=== PATIENT | female | born 1945 | race Caucasian/White ===

== ENCOUNTER 2016-09-14 07:06 | Outpatient (CLI) | payer MEDICARE, BC ==
[2016-09-14 08:07] LABS: Cardiac Risk 2.6 (Less than 4.5)
== END 2016-09-14 07:07 | disposition home or self-care (01) ==
LOC: MADLAB 07:06
PROVIDERS: ATTEND Family Medicine
DX: Z00.00 Encounter for general adult medical examination without abnormal findings (principal); Z12.11 Encounter for screening for malignant neoplasm of colon; Z13.6 Encounter for screening for cardiovascular disorders
CPT/HCPCS: 36415; 80061

== ENCOUNTER 2016-09-18 12:26 | Outpatient (CLI) | payer MEDICARE, BC | END 2016-09-18 12:27 | disposition home or self-care (01) | LOC: MADLAB 12:26 | DX: Z00.00 Encounter for general adult medical examination without abnormal findings (principal); Z13.6 Encounter for screening for cardiovascular disorders; Z12.11 Encounter for screening for malignant neoplasm of colon | CPT/HCPCS: 36415; 82274 ==

== ENCOUNTER 2016-09-22 07:28 | Outpatient (CLI) | payer MEDICARE, BC ==
[2016-09-22 08:22] LABS: #Basophils 0.1 thou/uL (0.0-0.2); #Eosinphils 0.1 thou/uL (0.0-0.7); #Lymphocytes 2.8 thou/uL (1.20-3.40); #Monocytes 0.5 thou/uL (0.11-0.59); #Neutrophils 2.2 thou/uL (1.40-6.50); %Basophils 2.5 % (0.0-1.0); %Eosinophils 2.4 % (0.0-10.0); %Lymphocytes 48.3 % (21.0-51.0); %Monocytes 8.4 % (0.0-10.0); %Neutrophils 38.4 % (42.0-75.0); Hemoglobin 12.6 g/dL (12.0-16.0); Mean Corpuscular HGB CONC 33.3 g/dL (32.0-36.0); Mean Corpuscular Volume 96.3 fl (81.0-99.0); Mean Platelet Volume 9.7 fL (7.4-10.4); Platelet Count 190 thou/uL (130-400); RBC Distribution Width 13.5 % (11.5-14.5); Red Blood Cell (RBC) Count 3.93 mill/uL (4.20-5.40); White Blood Cell (WBC) Count 5.7 thou/uL (4.8-10.8)
[2016-09-22 08:31] LABS: ALT (SGPT) 19 U/L (0-55); AST (SGOT) 21 U/L (5-34); Albumin 3.9 g/dL (3.4-4.8); Alkaline Phosphatase 47 U/L (40-150); Anion Gap 13 mmol/L (10-20); BUN (Urea Nitrogen) 10 mg/dL (9.8-20.1); Bilirubin, Total 0.7 mg/dL (0.2-1.2); CRP (Inflammatory) Less than 0.50 mg/dL (= or < 0.5); Calc. Creatinine Clearance 0 mL/min (70-130); Calcium 9.2 mg/dL (7.8-10.44); Carbon Dioxide 27 mmol/L (23-31); Chloride 106 mmol/L (98-107); Estimated GFR-MDRD 85; Globulin 2.3 g/dL (2.4-3.5); Glucose 78 mg/dL (83-110); Potassium 3.7 mmol/L (3.5-5.1); Protein, Total 6.2 g/dL (5.8-8.1); Sodium 142 mmol/L (136-145)
== END 2016-09-22 07:29 | disposition home or self-care (01) ==
LOC: MADLAB 07:28
PROVIDERS: ATTEND Internal Medicine Rheumatology
DX: M05.79 Rheumatoid arthritis with rheumatoid factor of multiple sites without organ or systems involvement (principal)
CPT/HCPCS: 36415; 80053; 85025; 85652; 86140

== ENCOUNTER 2019-02-27 13:10 | Outpatient (CLI) | payer MEDICARE, BC ==
--- NOTE | 2019-02-27 14:07 | RAD ---
RIGHT TIBIA FIBULA 2 VIEWS: HISTORY: Leg pain without trauma. COMPARISON: None. FINDINGS: Mild circumferential soft tissue swelling. No acute fracture or malalignment. No erosions or perios titis. Incidental note is made of a flabella. No osteochondral defect of the medial talar dome. IMPRESSION: Circumferential soft tissue swelling may be sequelae of cellulitis. No underlying osseous abnormalit y. POS: CET
== END 2019-02-27 13:11 | disposition home or self-care (01) ==
LOC: MADRAD 13:10
PROVIDERS: ATTEND Orthopaedic Surgery
DX: M25.561 Pain in right knee (principal); M79.89 Other specified soft tissue disorders

== ENCOUNTER 2021-11-14 06:51 | Outpatient (CLI) | payer MEDICARE, BC | END 2021-11-14 06:52 | disposition home or self-care (01) | LOC: MADLAB 06:51 | PROVIDERS: ATTEND Internal Medicine Rheumatology | DX: M81.8 Other osteoporosis without current pathological fracture (principal) | CPT/HCPCS: 36415; 82310 ==

== ENCOUNTER 2022-04-09 11:41 | Emergency (ER) | payer MEDICARE, BC ==
[2022-04-09] MEDS ORDERED: Iopamidol 370 76% 100 ML VIAL ONE (11:57)
[2022-04-09] MEDS ORDERED: Sodium Chloride 0.9% 1,000 ML ONE (12:29)
[2022-04-09] MEDS ORDERED: Ondansetron PF 4 MG/2 ML Vial ONE (12:29)
[2022-04-09] MEDS ORDERED: Morphine 4 MG/ML VIAL ONE (12:29)
[2022-04-09 12:48] LABS: #Basophils 0.1 thou/uL (0.0-0.2); #Lymphocytes 1.1 thou/uL (1.20-3.40); #Monocytes 0.5 thou/uL (0.11-0.59); %Basophils 0.6 % (0.0-1.0); %Lymphocytes 10.7 % (21.0-51.0); %Monocytes 4.8 % (0.0-10.0); Hemoglobin 13.9 g/dL (12.0-16.0); Mean Corpuscular HGB CONC 32.2 g/dL (32.0-36.0); Mean Corpuscular Hemoglobin 30.8 pg (27.0-31.0); Mean Corpuscular Volume 95.6 fL (78.0-98.0); Mean Platelet Volume 10.8 fL (7.4-10.4); Platelet Count 199 thou/uL (130-400); RBC Distribution Width 13.1 % (11.5-14.5); White Blood Cell (WBC) Count 10.7 thou/uL (4.8-10.8)
[2022-04-09 13:03] LABS: ALT (SGPT) 14 U/L (8-55); AST (SGOT) 18 U/L (5-34); Albumin 4.2 g/dL (3.4-4.8); Alkaline Phosphatase 42 U/L (40-110); Anion Gap 13 mmol/L (10-20); BUN (Urea Nitrogen) 13 mg/dL (9.8-20.1); Bilirubin, Total 1.3 mg/dL (0.2-1.2); Calc. Creatinine Clearance 0 mL/min (70-130); Carbon Dioxide 24 mmol/L (23-31); Chloride 104 mmol/L (98-107); Estimated GFR 81; Globulin 2.9 g/dL (2.4-3.5); Glucose 113 mg/dL (83-110); Lipase 20 U/L (8-78); Magnesium 1.9 mg/dL (1.6-2.6); Potassium 4.1 mmol/L (3.5-5.1); Protein, Total 7.1 g/dL (5.8-8.1); Sodium 137 mmol/L (136-145)
== END 2022-04-09 14:38 | disposition home or self-care (01) ==
LOC: MADERS 11:41
DX: K56.699 Other intestinal obstruction unspecified as to partial versus complete obstruction (principal); M06.9 Rheumatoid arthritis, unspecified; Z79.899 Other long term (current) drug therapy
CPT/HCPCS: 74177; 80053; 83690; 83735; 85025; 96361; 96374; 96375; J2270; J2405; J7050; Q9967

== ENCOUNTER 2023-09-02 14:18 | Emergency (ER) | payer MEDICARE, BC ==
[~2023-09-02 14:18] MED LIST: Iopamidol 370 76% 100 ML VIAL ONE
[2023-09-02 15:01] LABS: #Basophils 0.1 thou/uL (0.0-0.2); #Lymphocytes 1.6 thou/uL (1.20-3.40); #Monocytes 0.4 thou/uL (0.11-0.59); #Neutrophils 8.2 thou/uL (1.40-6.50); %Basophils 0.5 % (0.0-1.0); %Eosinophils 0.2 % (0.0-10.0); %Lymphocytes 15.5 % (21.0-51.0); %Monocytes 3.6 % (0.0-10.0); %Neutrophils 80.2 % (42.0-75.0); Hemoglobin 13.6 g/dL (12.0-16.0); Mean Corpuscular HGB CONC 32.4 g/dL (32.0-36.0); Mean Corpuscular Hemoglobin 30.8 pg (27.0-31.0); Mean Corpuscular Volume 95.1 fl (78.0-98.0); Mean Platelet Volume 11.3 fL (7.4-10.4); Platelet Count 164 10x3/uL (130-400); RBC Distribution Width 13.5 % (11.5-14.5); Red Blood Cell (RBC) Count 4.41 mill/uL (4.20-5.40); White Blood Cell (WBC) Count 10.2 10x3/uL (4.8-10.8)
[2023-09-02] MEDS ORDERED: Ondansetron PF 4 MG/2 ML Vial ONE ×2 (15:16→19:33)
[2023-09-02] MEDS ORDERED: Morphine 4 MG/ML VIAL ONE ×2 (15:16→19:32)
[2023-09-02 15:19] LABS: Anion Gap 15 mmol/L (10-20); BUN (Urea Nitrogen) 10 mg/dL (9.8-20.1); Calc. Creatinine Clearance 0 mL/min (70-130); Carbon Dioxide 23 mmol/L (23-31); Chloride 102 mmol/L (98-107); Potassium 4.1 mmol/L (3.5-5.1); Sodium 136 mmol/L (136-145)
[2023-09-02 15:20] LABS: ALT (SGPT) 24 U/L (8-55); AST (SGOT) 23 U/L (5-34); Albumin 4.2 g/dL (3.4-4.8); Alkaline Phosphatase 42 U/L (40-110); Bilirubin, Total 1.7 mg/dL (0.2-1.2); Estimated GFR 83; Globulin 2.9 g/dL (2.4-3.5); Glucose 118 mg/dL (83-110); Lipase 16 U/L (8-78); Protein, Total 7.1 g/dL (5.8-8.1)
[2023-09-02 15:37] LABS: Bilirubin Small (Negative); Blood, Urine Moderate (Negative); Clarity Clear (Clear); Glucose, Urine (Dipstick) Negative (Negative); Ketone, Urine 40 mg/dL (Negative); Leukocyte Negative (Negative); Nitrite Negative (Negative); Protein, Urine (Dipstick) Negative (Neg-Trace); Specific Gravity, Urine 1.025 (1.005-1.030); Urobilinogen 0.2 mg/dL (Less than 2); pH, Urine 5.5 (5.0-9.0)
[2023-09-02 15:44] LABS: Bacteria/HPF Rare-Few HPF (None Seen); CAUTI Indications for Culture Pelvic or flank pain; Mucous/LPF 2+ LPF (<2+); Squamous Epithelial 0-3 HPF (0-3); Urine Culture Reflex No No; WBC/HPF 0-3 HPF (0-3)
[2023-09-02] MEDS ORDERED: methylPREDNISolone Sod Succ/PF 125 MG/2 ML VIAL ONE (16:33)
[2023-09-02] MEDS ORDERED: Sodium Chloride 0.9% 1,000 ML ONE (17:25)
[2023-09-02] MEDS ORDERED: Lidocaine 2% Viscous 100 ML BOTTLE ONE (19:52)
[2023-09-02] MEDS ORDERED: Lactated Ringer's 1,000 ML ONE (20:09)
== END 2023-09-02 20:36 | disposition short-term general hospital (02) ==
LOC: MADERS 14:18
DX: K50.00 Crohn's disease of small intestine without complications (principal); K56.600 Partial intestinal obstruction, unspecified as to cause
CPT/HCPCS: 71045; 74177; 80053; 81001; 83605; 83690; 85025; 93005; 96374; 96375; 96376; J2270; J2405; J2930; J7050; J7120; Q9967

== ENCOUNTER 2023-12-29 14:16 | Emergency (ER) | payer MEDICARE, BC ==
[2023-12-29] MEDS ORDERED: Lidocaine 1% (PF) 30 ML VIAL ONE (15:37)
[2023-12-29] MEDS ORDERED: Acetaminophen 500 MG TAB ONE (15:43)
== END 2023-12-29 15:50 | disposition home or self-care (01) ==
LOC: MADERS 14:16
DX: S42.211A Unspecified displaced fracture of surgical neck of right humerus, initial encounter for closed fracture (principal); W01.10XA Fall on same level from slipping, tripping and stumbling with subsequent striking against unspecified object, initial encounter
CPT/HCPCS: 73030; 99283; J2001